=== PATIENT | male | born 1935 | race Caucasian/White ===

== ENCOUNTER 2017-06-27 22:15 | Observation (INO) ==
--- NOTE | 2017-06-27 22:35 | Emergency Department Note ---
Disposition Clinical Impression: Episode of unresponsiveness Disposition: Admitted As Inpatient Condition: Fair Referrals: NONE,PCP [Non-Partnered Physician] - Forms: ED Satisfaction Letter Time of Disposition: 00:27 Altered Mental Status HPI - General Chief Complaint: ED Neuro Symptoms/Deficit Stated Complaint: neuro symptoms Time Seen by Provider: 06/27/17 22:23 Source: patient, EMS Limitations: no limitations Nursing Notes Reviewed: Yes Vital Signs Reviewed: Yes - History of Present Illness HPI Narrative: 81-year-old male presents to the emergency department by ambulance after he had a witnessed episode of unresponsiveness at home which lasted about 2 minutes and then resolved. Patient's son reports that the patient was sitting in a chair talking to him when he suddenly just stopped talking and became unresponsive. Patient was sitting upright in the chair with his arms on the armrest. He was holding his head up and his eyes were open and his mouth was open. Son states that he could not tell if he was breathing or not that he would not to him or respond to shaking him. He did not become very pale or diaphoretic or cyanotic during the episode. He had no complaints prior to the episode. The episode lasted about 2 minutes and then he woke up and was back to his baseline state. No prior history of similar episodes. Patient has a history of dementia. He has caretakers and is unable to ambulate other than with a walker and assistance. On arrival here the patient is alert and oriented to person and place but not time which is baseline for him. Family states that the wafer slicer reported that today he did seem a little more confused than usual. He did eat some but would not drink much water and has not urinated much today. Family reports he does have a history of getting dehydrated easily. The patient denies any headache. He denies any chest pain or shortness of breath. No abdominal pain. MD complaint: altered mental status, decreased responsiveness Onset (ago): Just [employer]ACQU[employer]KER Time: 20:40 Timing confirmed by: family member Associated symptoms: Reports: chills, loss of appetite. Denies: chest pain, cough, diaphoresis, fever, nausea/vomiting, shortness of breath - Related Data Previous Rx's Medication Instructions Recorded Docusate [Colace] 100 mg PO BID PRN #28 capsule 11/18/15 Hyoscyamine SL [Levsin SL] 0.125 mg SL Q4HR #15 tab.subl 11/19/15 Allergies Allergy/AdvReac Type Severity Reaction Status Date / Time No Known Allergies Allergy Verified 08/08/15 01:09 All systems ED: reviewed and negative except as stated. Constitutional: Reports: chills. Denies: fever Eyes: Denies: vision change ENT ED: Denies: throat pain, congestion Cardiovascular: Denies: chest pain Respiratory: Denies: cough, dyspnea Gastrointestinal: Denies: abdominal pain, nausea, vomiting, diarrhea, constipation Genitourinary: Denies: dysuria Musculoskeletal: Denies: back pain, neck pain Neurological: Denies: headache, weakness, numbness Past Medical History - Past Medical History Medical history: Reports: COPD, hypertension Psychiatric history: Reports: no psych history - Social History Smoking Status: Current every day smoker Alcohol use: Reports: none Drug use: Reports: none Physical Exam - General Limitations: no limitations General appearance: alert, in no apparent distress - Head Head exam: atraumatic, normocephalic - Eye Eye exam: Present: EOMI - ENT ENT exam: mucous membranes dry - Neck Neck exam: Present: normal inspection, full ROM, trachea midline. Absent: tenderness, meningismus - Chest Chest inspection: Present: normal inspection, symmetric chest wall rise. Absent : tenderness - Respiratory Respiratory exam: Present: normal lung sounds bilaterally. Absent: respiratory distress, wheezes, accessory muscle use - Cardiovascular Cardiovascular exam: Present: regular rate, normal rhythm, normal heart sounds - Abdominal Exam Abdominal exam: Present: soft, Non-Tender, normal bowel sounds. Absent: distention, guarding, rebound, rigidity - Extremities Exam Extremities exam: Present: normal inspection, full ROM. Absent: tenderness, pedal edema - Back Exam Back exam: Present: normal inspection. Absent: CVA tenderness (R), CVA tenderness (L) - Neurological Exam Neurological exam: Present: alert, other (No facial droop. 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 No gross focal motor or sensory deficits.). Absent: motor sensory deficit - Psychiatric Psychiatric exam: Present: normal affect, normal mood - Skin Skin exam: Present: warm, dry, intact. Absent: cyanosis, diaphoresis Course Course Narrative: 81-year-old male with history of dementia presents to the emergency department with a brief episode of unresponsiveness which lasted about 2 minutes and then totally resolved and patient has been back to his baseline since then. He has been a little more confused than usual today with some decreased fluid intake and decreased urine output. No other symptoms or complaints. Basic lab evaluation with chest x-ray and EKG and head CT. Likely admission for altered mental status. - Reevaluation(s) Reevaluation #1: Test results discussed with patient and family. Consult the hospitalist. Time: 00:22 - Consultations Consultation #1: The hospitalist, Dr. Betancourt, was consulted and accepted admission of the patient. Time: 00:25 Vital Signs Temperature 97.6 F 06/27/17 22:18 Pulse Rate 61 06/27/17 22:18 Respiratory Rate 18 06/27/17 22:18 Blood Pressure 163/76 06/27/17 22:18 O2 Sat by Pulse Oximetry 97 06/27/17 22:18 Temperature 97.6 F 06/27/17 22:18 Pulse Rate 53 06/27/17 23:46 Respiratory Rate 18 06/27/17 23:46 Blood Pressure 153/78 06/27/17 23:46 O2 Sat by Pulse Oximetry 95 06/27/17 23:46 Oxygen Delivery Oxygen Delivery Room Air Altered Mental Status - Medical Records Medical records reviewed: Yes I reviewed the patient's medical records. - Lab Data Lab results reviewed: Yes I reviewed the patient's lab results. Result diagrams: 06/27/17 23:05 06/27/17 23:05 Lab Results 06/27/17 06/27/17 06/27/17 Range/Units 23:05 23:05 23:05 WBC 6.7 (4.3-11.1) K/mcL RBC 4.43 (4.19-5.50) M/mcL Hgb 13.3 (12.9-16.9) g/dL Hct 40.1 (37.5-50.1) % MCV 90.5 (83.0-100.0) fL MCH 30.0 (28.0-33.3) pg MCHC 33.2 (31.6-35.5) g/dL RDW 13.5 (11.5-14.5) % Plt Count 221 (140-400) K/mcL MPV 8.8 L (9.4-12.4) fL Immature Gran % 0.1 (0-4) % Seg Neutrophils % 74.2 % Lymphocytes % 15.0 % Monocytes % 7.3 % Eosinophils % 2.5 % Basophils % 0.9 % Neutrophils # 5.0 (1.6-8.9) K/mcL Lymphocytes # 1.0 (0.6-4.6) K/mcL Monocytes # 0.5 (0.0-1.3) K/mcL Eosinophils # 0.2 (0.0-0.6) K/mcL Basophils # 0.1 (0.0-0.2) K/mcL PT 13.3 H (9.4-12.1) Seconds INR 1.2 APTT 28.3 (26.0-36.0) Seconds Sodium 135 L (136-145) mEq/L Potassium 3.9 (3.5-5.1) mEq/L Chloride 105 (98-107) mEq/L Carbon Dioxide 27 (23-29) mEq/L BUN 21 (8-23) mg/dL Creatinine 1.42 H (0.70-1.30) mg/dL Est GFR ( Amer) 58 L (> 60) Est GFR (Non-Af Amer) 48 L (> 60) BUN/Creatinine Ratio 15 (6-26) Glucose 118 H (70-105) mg/dL Calculated Osmolality 284 (280-300) Calcium 8.4 L (8.6-10.3) mg/dL Total Bilirubin 0.3 (0.3-1.0) mg/dL Direct Bilirubin 0.1 (0.0-0.2) mg/dL Indirect Bilirubin 0.2 (0.0-1.2) mg/dL AST 16 (13-39) Units/L ALT 10 (7-52) Units/L Alkaline Phosphatase 66 (34-104) Units/L Troponin I (< 0.04) ng/mL Serum Total Protein 6.0 L (6.4-8.9) g/dL Albumin 3.3 L (3.5-5.7) g/dL Globulin 2.7 (2.4-3.5) g/dL Albumin/Globulin Ratio 1.2 (1.1-2.2) Urine Color (Yellow) Urine Clarity (Clear) Urine pH (5.0-8.0) pH Units Ur Specific [place] (1.010-1.025) Urine Protein (Neg-Trace) mg/dL Urine Glucose (UA) (Normal) mg/dL Urine Ketones (Negative) mg/dL Urine Blood (Negative) Urine Nitrite (Negative) Urine Bilirubin (Negative) Urine Urobilinogen (Normal) mg/dL Ur Leukocyte Esterase (Negative) Urine Microscopic RBC (0-3) per hpf Urine Microscopic WBC (0-3) per hpf Ur Squamous Epith Cells (None-Few) per lpf Urine Bacteria (None-Few) per hpf Hyaline Casts (None-Few) per lpf Ur Culture Indicated? (NO) 06/27/17 06/27/17 Range/Units 23:05 23:20 WBC (4.3-11.1) K/mcL RBC (4.19-5.50) M/mcL Hgb (12.9-16.9) g/dL Hct (37.5-50.1) % MCV (83.0-100.0) fL MCH (28.0-33.3) pg MCHC (31.6-35.5) g/dL RDW (11.5-14.5) % Plt Count (140-400) K/mcL MPV (9.4-12.4) fL Immature Gran % (0-4) % Seg Neutrophils % % Lymphocytes % % Monocytes % % Eosinophils % % Basophils % % Neutrophils # (1.6-8.9) K/mcL Lymphocytes # (0.6-4.6) K/mcL Monocytes # (0.0-1.3) K/mcL Eosinophils # (0.0-0.6) K/mcL Basophils # (0.0-0.2) K/mcL PT (9.4-12.1) Seconds INR APTT (26.0-36.0) Seconds Sodium (136-145) mEq/L Potassium (3.5-5.1) mEq/L Chloride (98-107) mEq/L Carbon Dioxide (23-29) mEq/L BUN (8-23) mg/dL Creatinine (0.70-1.30) mg/dL Est GFR ( Amer) (> 60) Est GFR (Non-Af Amer) (> 60) BUN/Creatinine Ratio (6-26) Glucose (70-105) mg/dL Calculated Osmolality (280-300) Calcium (8.6-10.3) mg/dL Total Bilirubin (0.3-1.0) mg/dL Direct Bilirubin (0.0-0.2) mg/dL Indirect Bilirubin (0.0-1.2) mg/dL AST (13-39) Units/L ALT (7-52) Units/L Alkaline Phosphatase (34-104) Units/L Troponin I < 0.03 (< 0.04) ng/mL Serum Total Protein (6.4-8.9) g/dL Albumin (3.5-5.7) g/dL Globulin (2.4-3.5) g/dL Albumin/Globulin Ratio (1.1-2.2) Urine Color Yellow (Yellow) Urine Clarity Clear (Clear) Urine pH 5.5 (5.0-8.0) pH Units Ur Specific [place] 1.028 H (1.010-1.025) Urine Protein Trace (Neg-Trace) mg/dL Urine Glucose (UA) Normal (Normal) mg/dL Urine Ketones Negative (Negative) mg/dL Urine Blood Negative (Negative) Urine Nitrite Negative (Negative) Urine Bilirubin Negative (Negative) Urine Urobilinogen Normal (Normal) mg/dL Ur Leukocyte Esterase Negative (Negative) Urine Microscopic RBC 5-15 H (0-3) per hpf Urine Microscopic WBC 3-5 H (0-3) per hpf Ur Squamous Epith Cells Moderate H (None-Few) per lpf Urine Bacteria None Seen (None-Few) per hpf Hyaline Casts None Seen (None-Few) per lpf Ur Culture Indicated? NO (NO) - Radiology Data Radiology results reviewed: Yes I reviewed the patient's radiology results. Chest X-Ray 06/27/17 22:35 IMPRESSION: Small opacity in the left lower lobe. This is suggestive of pleural effusion and partial atelectasis. Underlying pneumonia is not excluded. D/ / 06/27/2017 23:04:30 Ahsan Brenner MD / Cinthia Brooks Interpreting Provider: Ahsan Brenner MD Head CT 06/27/17 22:36 IMPRESSION: No evidence of acute intracranial hemorrhage or mass effect. Global atrophy and findings of chronic small vessel ischemia as above. D/ / Aaron Foreman MD / Aaron Foreman MD Interpreting Provider: Aaron Foreman MD - EKG Data EKG attestation: Yes I reviewed and interpreted this EKG. EKG results narrative: Sinus bradycardia with first-degree AV block. Heart rate 57. Right bundle branch block. No significant change from prior EKG dated 11/18/2015. TPA Checklist - LKW: 3-4.5 hrs Add. Warnings/Precautions Patient/family understanding: The patient/family members have been counseled and understood the risk, benefit , and alternatives of treatment.
[2017-06-27] MEDS ORDERED: 0.9 % Sodium Chloride 500 ML IVC ONE (22:41)
[2017-06-27 23:18] LABS: Basophils # 0.1 K/mcL (0.0-0.2); Basophils % 0.9 %; Eosinophils # 0.2 K/mcL (0.0-0.6); Eosinophils % 2.5 %; Hematocrit 40.1 % (37.5-50.1); Hemoglobin 13.3 g/dL (12.9-16.9); Immature Granulocytes % 0.1 % (0-4); Mean Corpuscular HGB Conc 33.2 g/dL (31.6-35.5); Mean Corpuscular Volume 90.5 fL (83.0-100.0); Mean Platelet Volume 8.8 fL (9.4-12.4); Monocytes # 0.5 K/mcL (0.0-1.3); Monocytes % 7.3 %; Platelet Count 221 K/mcL (140-400); Red Blood Count 4.43 M/mcL (4.19-5.50); Red Cell Distribution Width 13.5 % (11.5-14.5); Segmented Neutrophils % 74.2 %
[2017-06-27 23:32] LABS: INR 1.2; Prothrombin Time 13.3 Seconds (9.4-12.1)
[2017-06-27 23:35] LABS: Activated Partial Thrombo Time 28.3 Seconds (26.0-36.0)
[2017-06-27 23:38] LABS: Bilirubin,Urine Negative (Negative); Blood,Urine Negative (Negative); Clarity,Urine Clear (Clear); Color,Urine Yellow (Yellow); Glucose,Urine (UA) Normal (Normal); Ketones,Urine Negative (Negative); Leukocyte Esterase,Urine Negative (Negative); Nitrite,Urine Negative (Negative); PH,Urine 5.5 pH Units (5.0-8.0); Protein,Urine Trace mg/dL (Neg-Trace); Specific Gravity,Urine 1.028 (1.010-1.025); Urobilinogen,Urine Normal (Normal)
[2017-06-27 23:39] LABS: Bacteria,Urine None Seen per hpf (None-Few); Hyaline Casts,Urine None Seen per lpf (None-Few); Squamous Epithelial Cell,Urine Moderate per lpf (None-Few)
[2017-06-27] MEDS: 0.9 % Sodium Chloride 1,000 ML IVC SCH (23:40)
[2017-06-27 23:41] LABS: Albumin 3.3 g/dL (3.5-5.7); Albumin/Globulin Ratio 1.2 (1.1-2.2); Bilirubin,Direct 0.1 mg/dL (0.0-0.2); Bilirubin,Indirect 0.2 mg/dL (0.0-1.2); Bilirubin,Total 0.3 mg/dL (0.3-1.0); Calcium 8.4 mg/dL (8.6-10.3); Globulin 2.7 g/dL (2.4-3.5); Potassium 3.9 mEq/L (3.5-5.1)
[2017-06-28] MEDS ORDERED: Naloxone 0.4 MG/ML INJ IVP PRN (01:35)
--- NOTE | 2017-06-28 01:59 | Internal Med History&Physical ---
<Jean ClaudeBrandyBrett - Last Filed: 06/28/17 01:51> Date of Encounter: 06/28/17 Time of Encounter: 00:30 Assessment and Plan (1) Episode of unresponsiveness Current visit: Yes Status: Acute Short episode lasting ~[address] head negative Will work up for syncope and seizure Ordered bilateral carotid dopplers, echocardiogram Ordered EEG Neuro checks q4 (2) Dementia Current visit: Yes Status: Chronic At baseline Qualifiers: Dementia type: unspecified type Dementia behavioral disturbance: without behavioral disturbance Qualified Code(s): F03.90 - Unspecified dementia without behavioral disturbance (3) HTN (hypertension) Current visit: Yes Status: Chronic Controlled Continue home lisinopril Qualifiers: Hypertension type: essential hypertension Qualified Code(s): I10 - Essential (primary) hypertension (4) CKD (chronic kidney disease) Current visit: Yes Status: Chronic Cr 1.42 Around baseline Will monitor Qualifiers: Chronic kidney disease stage: unspecified stage Qualified Code(s): N18.9 - Chronic kidney disease, unspecified (5) Hx of basal cell carcinoma excision Current visit: Yes Status: Chronic (6) COPD (chronic obstructive pulmonary disease) Current visit: Yes Status: Chronic No acute exacerbation Will monitor Qualifiers: COPD type: unspecified COPD Qualified Code(s): J44.9 - Chronic obstructive pulmonary disease, unspecified (7) Tobacco abuse, in remission Current visit: Yes Status: Chronic Quit chewing tobacco in recent months Quit smoking in 2014 (8) DVT prophylaxis Current visit: Yes Status: Acute Heparin subq q12h Internal Medicine - H&P: HPI Chief complaint: Nonresponsive x2 minutes Admitted From: Home Plans for Post Hospital Care: Home History of present illness: Mr. Flores is a 81 year old male with baseline dementia who presents with 2 minutes of being nonresponsive. Due to the patient's baseline mental status, most of the history is gathered from his son, who he lives with. The patient was in the middle of a conversation with his son when he suddenly became nonresponsive in his armchair, "staring straight forward with wide eyes and an open mouth." The son relays that there have been no past episodes. The patient did not complain of headache, chest pain, SOB, palpitations, fever, or chills at that time, and continues to deny them when seen in the ED. The patient ambulates only with a walker or with assistance at home and did have a fall about one month ago. Past medical history is significant for HTN, esophageal stenosis, TIAs, CKD, excised basal cell carcinoma, and COPD. Patient has a long history of both smoking and chewing tobacco, up to 70 years of each. Past Med Surg Social Fam HX - Past Medical History Medical history: COPD, hypertension Psychiatric history: no psych history - Social History Smoking Status: Former smoker Smokeless Tobacco Status: No Alcohol use: none Drug use: none Internal Medicine - H&P: Meds Aspirin [Lo-Dose Aspirin EC] 81 mg PO DAILY 06/28/17 [History] Cetirizine HCl [All Day Allergy] 10 mg PO DAILY 06/28/17 [History] Lisinopril [Zestril] 20 mg PO DAILY 06/28/17 [History] Memantine [Namenda] 5 mg PO BID 06/28/17 [History] Mirtazapine [Remeron] 15 mg PO HS 06/28/17 [History] Trazodone HCl 100 mg PO HS 06/28/17 [History] 3 Allergy/AdvReac Type Severity Reaction Status Date / Time No Known Allergies Allergy Verified 08/08/15 01:09 All Systems PM: A 10-system review of systems was performed and is negative for pertinent findings except as documented above in the HPI. Review of systems: As per HPI - Constitutional Vitals: Temp Pulse Resp BP Pulse Ox 97.3 F L 51 16 162/80 56 06/28/17 01:29 06/28/17 00:37 06/28/17 01:29 06/28/17 01:29 06/28/17 01:29 General appearance: Present: cooperative, A&O X 2 (person and place), pleasant, no acute distress, answers questions appropriately - Head Head exam: Present: atraumatic, normal inspection, normocephalic - ENT ENT exam: Present: mucous membranes moist - Neck Neck exam general surgery: Present: trachea midline - Respiratory Respiratory exam: Present: decreased breath sounds, CTAB. Absent: accessory muscle use, respiratory distress - Cardiovascular Cardiovascular exam: Present: bradycardia (50s), +S1, +S2 - GI/Abdominal GI/Abdominal exam: Present: soft, no peritoneal signs Additional comments: no carotid bruits appreciated - Extremities Exam Extremities exam: Present: radial pulses palpable and symmetrical - Neurological Exam Neurological exam: Present: no focal deficits - Psychiatric Psychiatric exam: Present: normal affect, normal mood. Absent: agitated, anxious Additional comments: confusion at baseline per family - Skin Skin exam: Present: dry, warm Internal Med - H&P Results - Labs CBC & Chem 7: 06/27/17 23:05 06/27/17 23:05 <Bradley Laguerre - Last Filed: 06/28/17 02:45> Date of Encounter: 06/28/17 Time of Encounter: : Internal Medicine - H&P: HPI History of present illness: Mr. Flores is a 81 year old male All Systems PM: A 10-system review of systems was performed and is negative for pertinent findings except as documented above in the HPI. - Constitutional Vitals: Temp Pulse Resp BP Pulse Ox 97.3 F L 56 16 162/80 96 06/28/17 01:29 06/28/17 01:29 06/28/17 01:29 06/28/17 01:29 06/28/17 01:29 Internal Med - H&P Results - Labs CBC & Chem 7: 06/27/17 23:05 06/27/17 23:05 - Attending Attestation I examined this patient and my medical decision-making was reviewed with the Resident Physician, Dr. Brett Silverio. I agree with the documented findings, disposition and treatment plan as described with any changes set forth below. 81-year-old male patient with history of dementia, hypertension, chronic kidney disease stage III, COPD presented to the ER with EMS after he had an episode of nonresponsiveness while his son was speaking with him. The episode apparently lasted for about 2 minutes. Patient was apparently staring straightforward with wide-open eyes and open mouth. The patient himself has dementia and does not recollect any of this but this information was obtained through review of ED records and from family. Currently he denies any chest pain shortness of breath. Noticed lightheadedness. On examination, patient is awake and alert. Does have erythema in his right conjunctiva. Heart sounds are normal. Breath sounds were also normal. No pedal edema. Labs show sodium of 135, creatinine of 1.42. Head CT was negative for any acute bleed. Patient does have global atrophy. Chest x-ray shows small obesity in left lower lobe concerning for pleural effusion and partial atelectasis. Possible syncope/ episode of unconsciousness: Uncertain etiology. Will evaluate for possible syncope and seizures. Get 2-D echocardiogram, carotid Dopplers and EEG. Monitor neuro status. Dementia: Chronic condition. At risk for delirium. Will monitor. Chronic kidney disease stage III: Appears to be at patient's baseline. We will follow renal function closely. Left-sided pleural effusion: Uncertain etiology. 2-D echo. Will get CT chest to better evaluate this and look for any underlying infiltrate. DVT prophylaxis: With subcutaneous heparin
[2017-06-28 04:58] LABS: BUN/Creatinine Ratio 15 (6-26); Blood Urea Nitrogen 20 mg/dL (8-23); Calcium 8.3 mg/dL (8.6-10.3); Carbon Dioxide 26 mEq/L (23-29); Chloride 107 mEq/L (98-107); Glucose 109 mg/dL (70-105); Osmolality,Calculated 287 (280-300); Sodium 137 mEq/L (136-145); eGFR For African Americans > 60 (> 60); eGFR For Non-African Americans 53 (> 60)
[2017-06-28] MEDS: *HR* Heparin 5,000 UNIT/ML VIAL SQ SCH ×2 (06:05→17:44)
[2017-06-28] MEDS: Aspirin Enteric Coated 81 MG Tablet PO SCH (09:38)
[2017-06-28] MEDS: Lisinopril 20 MG TABLET PO SCH (09:38)
--- NOTE | 2017-06-28 15:08 | EEG/EMG/Oth Biometrics Report ---
EEG Procedure Report Date of procedure: 06/28/17 EEG Procedure: Routine EEG Procedure Note: This is a report of a 21 channel bipolar and referential montage EEG recorded on an individual who experienced what sounds like a syncopal episode. It on a rhythm consists of low-voltage mixed theta and delta frequencies. This rhythm reveals in all leads bilaterally. However vertex sharp waves are identified need any recording. Hyperventilation is not performed in the recording. The individual remains and appears to be stage III sleep throughout much of the recording. There is no wakefulness identified during the study. Photic stimulation does not produce a driving response. The EKG rhythm strip reveals sinus bradycardia at 48 bpm. Impressions: This study is normal consistent with stage III sleep. There is no evidence of epileptiform activity identified during the study. Sinus bradycardia at 48 beats per minutes is also identified. Comment: A normal EEG does not preclude a diagnosis of seizure or epilepsy. If the clinical suspicion for seizure activity is high, serial EEGs or perhaps a prolonged recording may increase the yield. Please correlate clinically.
--- NOTE | 2017-06-28 17:07 | Internal Med Progress Note ---
Date of Encounter: 06/28/17 Time of Encounter: 11:00 - Assessment and plan (1) Episode of unresponsiveness Current Visit: Yes Status: Acute Assessment and plan: Patient was brought to the emergency department by son after 2 minute episode of unresponsiveness. Pt with baseline dementia and while talking with son was staring straight ahead with his mouth open. CT head is negative. There is global atrophy and chronic small vessel ischemia. EEG was negative. Carotid Dopplers were found to have nonstenotic plaque, and echocardiogram has preserved function with mild LVEDD and no significant valvular dysfunction. There is plaque noted in the ascending aorta. Patient has had no episodes since arrival. Family reports that they would like for him to be placed in the ECF due to continued need for care. (2) CKD (chronic kidney disease) Current Visit: Yes Status: Chronic Assessment and plan: GFR is 53, serum creatinine 1.3. His peers to be patient's baseline. Continue to avoid nephrotoxins Monitor labs. Qualifiers: Chronic kidney disease stage: unspecified stage Qualified Code(s): N18.9 - Chronic kidney disease, unspecified (3) COPD (chronic obstructive pulmonary disease) Current Visit: Yes Status: Chronic Assessment and plan: Patient in no acute exacerbation. Lungs are clear and diminished throughout. Patient is on room air. Oxygen as needed to maintain sats greater than 92%. Patient does not appear to take any medications at home for COPD. Qualifiers: COPD type: unspecified COPD Qualified Code(s): J44.9 - Chronic obstructive pulmonary disease, unspecified (4) Dementia Current Visit: Yes Status: Chronic Assessment and plan: Patient appears to be at baseline. Patient is close to the nurses station. Continue fall precautions and bed alarm. Qualifiers: Dementia type: unspecified type Dementia behavioral disturbance: without behavioral disturbance Qualified Code(s): F03.90 - Unspecified dementia without behavioral disturbance (5) HTN (hypertension) Current Visit: Yes Status: Chronic Assessment and plan: Chronic. Continue home medications. Qualifiers: Hypertension type: essential hypertension Qualified Code(s): I10 - Essential (primary) hypertension (6) Hx of basal cell carcinoma excision Current Visit: Yes Status: Chronic (7) Tobacco abuse, in remission Current Visit: Yes Status: Chronic Assessment and plan: Smoking cessation in 2014. Patient recently stop smokeless tobacco in the last 3-6 months. (8) DVT prophylaxis Current Visit: Yes Status: Acute Assessment and plan: Heparin subcutaneous twice daily. - Time Spent With Patient less than 15 minutes - Subjective Interval history: Patient was patient was seen and assessed at bedside at 11 AM. He is alert, awake. He is oriented to name only. Despite redirection, patient is unable to recall information. He denies any headache or blurred vision. He denies any abdominal pain, nausea or vomiting. He denies chest pain or shortness of breath. I spoke with family later this afternoon, the requesting he is admitted to a [place] [facility] since she requires so much care. They are aware that we are waiting on physical therapy, occupational therapy, and social work to start the process. I spoke with the about everything except for the echocardiogram results, which were not available at that time. - Constitutional Vitals: Temp Pulse Resp BP Pulse Ox 97.3 F L 56 16 185/85 95 06/28/17 16:14 06/28/17 16:14 06/28/17 16:14 06/28/17 16:14 06/28/17 16:14 General appearance: Present: cooperative, A&O X 2 (person and place), pleasant, no acute distress, answers questions appropriately - Head Head exam: Present: atraumatic, normal inspection, normocephalic - Eye Eye exam: Present: normal appearance, conjuntiva pink, sclera anicteric - Neck Neck exam general surgery: Present: supple, trachea midline. Absent: lymphadenopathy, tenderness - Respiratory Respiratory exam: Present: CTAB. Absent: accessory muscle use, chest wall tenderness, rales, respiratory distress, rhonchi, wheezes - Cardiovascular Cardiovascular exam: Present: RRR, +S1, +S2. Absent: diastolic murmur, gallop, rubs, systolic murmur - GI/Abdominal GI/Abdominal exam: Present: normal bowel sounds, soft. Absent: distended, hepatomegaly, tenderness - Extremities Exam Extremities exam: Present: normal capillary refill, warm, radial pulses palpable and symmetrical. Absent: calf tenderness, cyanotic, pedal edema, tenderness - Neurological Exam Neurological exam: Present: alert, altered, no focal deficits. Absent: oriented X3, facial droop, speech deficit - Skin Skin exam: Present: dry, intact, normal color, warm. Absent: rash Internal Medicine: Result - Labs CBC & Chem 7: 06/27/17 23:05 06/28/17 04:25 Labs: BMP 06/28/17 04:25 Sodium 137 Potassium 4.0 Chloride 107 Carbon Dioxide 26 BUN 20 Creatinine 1.30 Glucose 109 H Calcium 8.3 L - ABG Interpretation ABG results: PT/INR, D-dimer PT 13.3 Seconds (9.4-12.1) H 06/27/17 23:05 - Impressions Impressions Echocardiogram 06/28/17 01:23 Impressions: Sinus bradycardia, HR 40-50's. LVEF 60%. Mild left ventricular diastolic dysfunction. Normal right ventricular structure with normal function. No significant valvular dysfunction. No pulmonary hypertension. Plaque noted in the ascending aorta. Left Ventricular Wall Motion: Rest Echo Findings All wall segments showed normal motion. Findings: Study Quality * Technically adequate exam. ECG Findings * Sinus bradycardia, HR 40-50's. Left Ventricle * LVEF 60%. * Normal LV chamber size, wall thickness and function. * Mild left ventricular diastolic dysfunction. Right Ventricle * Normal right ventricular structure with normal function. Left Atrium * Moderately dilated left atrium. Right Atrium * Normal right atrial size. Aortic Valve * No aortic regurgitation. * Trileaflet aortic valve. * No aortic stenosis. Mitral Valve * No mitral regurgitation. * Normal mitral valve structure. * No mitral stenosis. Tricuspid Valve * Tricuspid valve not well visualized. * No tricuspid regurgitation. * Estimated RA pressure is 3 mmHg. Pulmonic Valve * Pulmonic valve is not well visualized. * No pulmonic stenosis. * Trace pulmonic regurgitation. Pulmonary Artery * Pulmonary artery not well visualized. Aorta * Normally sized aortic root. * Plaque noted in the ascending aorta. Pericardium * There is no pericardial effusion present. Interatrial Septum * No evidence of PFO by color Doppler. IVC * Normal IVC dimensions and inspiratory collapse. Chest CT 06/28/17 08:00 IMPRESSION: 1. Mild bronchial wall thickening in the left lower lobe. Please correlate with clinical symptoms of bronchitis. There is no associated pleural effusion. 2. Coronary artery disease. 3. Emphysema. 4. Multiple nodules in the lung apices bilaterally, measuring up to 5 mm in size. Please see below for follow-up recommendations. 5. Severe right glenohumeral degenerative changes. RECOMMENDATIONS: Fleischner Society guidelines for follow-up and management of incidentally detected pulmonary nodules: Multiple Solid Nodules: Nodule size less than 6 mm In a low-risk patient, no routine follow-up. In a high-risk patient, optional CT at 12 months. - Low risk patients include individuals with minimal or absent history of smoking and other known risk factors. - High risk patients include individuals with a history or smoking or known risk factors. Radiology 2017 http://pubs.rsna.org/doi/full/10.1148/[email or web address] D/ / 06/28/2017 08:44:55 Ector Mccall MD / bruce Interpreting Provider: Ector Mccall MD Consult Discharge Plan - Plan [facility]errals: [facility] [Primary Care Provider] -
--- NOTE | 2017-06-28 19:47 | Electrocardiograph Report ---
[address] [address] Test Date: 2017-06-27 Pat Name: Cain Flores Department: 104 Room: 3B Gender: M School Occupational Therapist: IAN : 1935 Requested By: Aston Delgado Order Number: [id number] Reading MD: Lashell Whitlock Measurements Intervals [place] Rate: 57 P: 59 CO: 228 QRS: 254 QRSD: 157 T: 25 QT: 450 QTc: 444 Interpretive Statements SINUS BRADYCARDIA WITH FIRST DEGREE AV BLOCK MARKED RIGHT AXIS DEVIATION RIGHT BUNDLE BRANCH BLOCK Electronically Signed On 06-28-2017 19:45:48 EST by Lashell Whitlock
[2017-06-28] MEDS: 0.9 % Sodium Chloride 1,000 ML IVC SCH (20:28)
[2017-06-28] MEDS ORDERED: Mirtazapine 15 MG TABLET PO SCH (21:00)
[2017-06-28] MEDS ORDERED: traZODone 50 MG TABLET PO SCH (21:00)
[2017-06-29] MEDS: *HR* Heparin 5,000 UNIT/ML VIAL SQ SCH (04:22)
[2017-06-29 06:18] LABS: Basophils # 0.1 K/mcL (0.0-0.2); Basophils % 1.1 %; Eosinophils # 0.4 K/mcL (0.0-0.6); Eosinophils % 5.6 %; Hematocrit 36.5 % (37.5-50.1); Hemoglobin 12.1 g/dL (12.9-16.9); Immature Granulocytes % 0.3 % (0-4); Lymphocytes % 31.2 %; Mean Corpuscular HGB Conc 33.2 g/dL (31.6-35.5); Mean Corpuscular Hemoglobin 29.7 pg (28.0-33.3); Mean Corpuscular Volume 89.7 fL (83.0-100.0); Mean Platelet Volume 9.4 fL (9.4-12.4); Monocytes # 0.5 K/mcL (0.0-1.3); Monocytes % 7.5 %; Neutrophils # 3.4 K/mcL (1.6-8.9); Platelet Count 226 K/mcL (140-400); Red Blood Count 4.07 M/mcL (4.19-5.50); Red Cell Distribution Width 13.3 % (11.5-14.5); Segmented Neutrophils % 54.3 %
[2017-06-29 06:38] LABS: BUN/Creatinine Ratio 13 (6-26); Blood Urea Nitrogen 16 mg/dL (8-23); Calcium 8.5 mg/dL (8.6-10.3); Carbon Dioxide 27 mEq/L (23-29); Chloride 108 mEq/L (98-107); Glucose 88 mg/dL (70-105); Osmolality,Calculated 287 (280-300); Potassium 3.7 mEq/L (3.5-5.1); Sodium 138 mEq/L (136-145); eGFR For African Americans > 60 (> 60); eGFR For Non-African Americans 56 (> 60)
[2017-06-29 06:51] VITALS: BP 172/89
[2017-06-29] MEDS: Aspirin Enteric Coated 81 MG Tablet PO SCH (08:41)
[2017-06-29] MEDS: Lisinopril 20 MG TABLET PO SCH (08:41)
[2017-06-29] MEDS ORDERED: hydroCHLOROthiazide 25 MG TABLET PO SCH (09:00)
--- NOTE | 2017-06-29 10:03 | Discharge Summary ---
Date of Encounter: 06/29/17 Time of Encounter: 09:50 - Discharge Diagnosis (1) Episode of unresponsiveness Priority: Primary Status: Resolved Comments: Patient was brought to the emergency department by son after 2 minute episode of unresponsiveness. Pt with baseline dementia and while talking with son was staring straight ahead with his mouth open. CT head is negative. There is global atrophy and chronic small vessel ischemia. EEG was negative. Carotid Dopplers were found to have nonstenotic plaque, and echocardiogram has preserved function with mild LVEDD and no significant valvular dysfunction. There is plaque noted in the ascending aorta. Patient has had no episodes since arrival. (2) CKD (chronic kidney disease) Priority: Secondary Status: Chronic Comments: GFR is 56, serum creatinine 1.24. Appears to be patient's baseline. Continue to avoid nephrotoxins. Qualifiers: Chronic kidney disease stage: unspecified stage Qualified Code(s): N18.9 - Chronic kidney disease, unspecified (3) COPD (chronic obstructive pulmonary disease) Priority: Secondary Status: Chronic Comments: No acute exacerbation. Lungs are clear and diminished throughout. Patient is on room air. Oxygen as needed to maintain sats greater than 92%. Patient does not appear to take any medications at home for COPD. May use prn Duonebs at [facility] for wheezing or cough. Qualifiers: COPD type: unspecified COPD Qualified Code(s): J44.9 - Chronic obstructive pulmonary disease, unspecified (4) Dementia Priority: Secondary Status: Chronic Comments: Patient appears to be at baseline. Patient is close to the nurses station. Continue fall precautions and bed alarm. Qualifiers: Dementia type: unspecified type Dementia behavioral disturbance: without behavioral disturbance Qualified Code(s): F03.90 - Unspecified dementia without behavioral disturbance (5) HTN (hypertension) Priority: Secondary Status: Chronic Comments: Chronic. Continue home medications. Well controlled. Qualifiers: Hypertension type: essential hypertension Qualified Code(s): I10 - Essential (primary) hypertension (6) Hx of basal cell carcinoma excision Priority: Secondary Status: Chronic Comments: Per history. (7) Tobacco abuse, in remission Priority: Secondary Status: Chronic Comments: Smoking cessation in 2014. Patient recently stopped using smokeless tobacco in the last 3-6 months. (8) DVT prophylaxis Priority: Secondary Status: Acute Comments: Heparin subcutaneous BID. - Discharge Medications Home Medications: Aspirin [Lo-Dose Aspirin EC] 81 mg PO DAILY 06/28/17 [History] Cetirizine HCl [All Day Allergy] 10 mg PO DAILY 06/28/17 [History] Lisinopril [Zestril] 20 mg PO DAILY 06/28/17 [History] Memantine [Namenda] 5 mg PO BID 06/28/17 [History] Mirtazapine [Remeron] 15 mg PO HS 06/28/17 [History] Omeprazole [PriLOSEC] 20 mg PO DAILY 06/28/17 [History] Trazodone HCl 100 mg PO HS 06/28/17 [History] Allergies/Adverse Reactions: 3 Allergy/AdvReac Type Severity Reaction Status Date / Time No Known Allergies Allergy Verified 08/08/15 01:09 Date of admission: 06/29/17 08:54 [facility] Discharging clinician: Brenna Parekh Anticipated date of discharge: 06/29/17 - Patient Status Disposition: Transfer SNF Condition: Good Functional capacity at discharge: uses cane/walker Overall status at discharge: patient is progressing back to baseline - Discharge Instructions Follow Up With: [facility] [Primary Care Provider] - - Diet and Activity Activity: as per physical therapy Diet: advance to your usual diet Hospital course: Mr. Flores is a 81 year old male with PMH or dementia, HTN, basal cell carcinoma, tobacco use, COPD, CKD stage III who presented to the ED with approximately 2 min episode of staring off with mouth open and did not respond to son who was speaking to him. All imaging was negative, EEG was negative. Labs are WNL and renal function is at baseline. Pt has history of dementia and has not had behavioral disturbances. He is at his baseline per son. The family has requested that he is placed in an ECF, he is becoming increasingly difficult to care for at home. He has been accepted to [facility] and will be transferred there today. Pt was intermittently hypertensive and has been started on HCTZ 12.5mg po daily , will continue at ECF and will require further monitoring and medication adjustments prn. Pt is stable and appropriate for discharge to ECF - Time Spent with Patient Total time spent providing and/or coordinating discharge services: Less than 30 minutes - Constitutional Vitals: Temp Pulse Resp BP Pulse Ox 98.1 F 53 16 172/89 96 06/29/17 06:49 06/29/17 06:49 06/29/17 06:49 06/29/17 06:49 06/29/17 06:49 General appearance: Present: cooperative, A&O X 2 (person and place), pleasant, no acute distress. Absent: answers questions appropriately - Head Head exam: Present: atraumatic, normal inspection, normocephalic - Eye Eye exam: Present: conjuntiva pink. Absent: normal appearance, sclera anicteric - Neck Neck exam general surgery: Present: supple, trachea midline. Absent: lymphadenopathy - Respiratory Respiratory exam: Present: CTAB. Absent: accessory muscle use, rales, respiratory distress, rhonchi, wheezes - Cardiovascular Cardiovascular exam: Present: RRR, +S1, +S2. Absent: diastolic murmur, gallop, rubs, systolic murmur - GI/Abdominal GI/Abdominal exam: Present: normal bowel sounds, soft, no peritoneal signs. Absent: distended, hepatomegaly, tenderness - Extremities Exam Extremities exam: Present: normal capillary refill, normal inspection, warm, radial pulses palpable and symmetrical. Absent: calf tenderness, cyanotic, pedal edema - Neurological Exam Neurological exam: Present: alert, oriented X3, no focal deficits. Absent: altered, facial droop, speech deficit - Skin Skin exam: Present: dry, intact, normal color, warm. Absent: rash
--- NOTE | 2017-06-29 10:16 | Physician Discharge Referral ---
ExtendedCare Referral Info Transfer To: [facility] Provider in Charge after Transfer: PCP Institutional Level of Care: Intermediate - Diagnosis (1) Episode of unresponsiveness Priority: Primary Status: Resolved (2) CKD (chronic kidney disease) Priority: Secondary Status: Chronic (3) COPD (chronic obstructive pulmonary disease) Priority: Secondary Status: Chronic (4) Dementia Priority: Secondary Status: Chronic (5) HTN (hypertension) Priority: Secondary Status: Chronic (6) Hx of basal cell carcinoma excision Priority: Secondary Status: Chronic (7) Tobacco abuse, in remission Priority: Secondary Status: Chronic (8) DVT prophylaxis Priority: Secondary Status: Acute Prognosis: Fair Aware of Diagnosis: Family - Transfer Medications Home Medications: Aspirin [Lo-Dose Aspirin EC] 81 mg PO DAILY 06/28/17 [History] Cetirizine HCl [All Day Allergy] 10 mg PO DAILY 06/28/17 [History] Lisinopril [Zestril] 20 mg PO DAILY 06/28/17 [History] Memantine [Namenda] 5 mg PO BID 06/28/17 [History] Mirtazapine [Remeron] 15 mg PO HS 06/28/17 [History] Omeprazole [PriLOSEC] 20 mg PO DAILY 06/28/17 [History] Trazodone HCl 100 mg PO HS 06/28/17 [History] Allergies/Adverse Reactions: 3 Allergy/AdvReac Type Severity Reaction Status Date / Time No Known Allergies Allergy Verified 08/08/15 01:09 - Respiratory Orders Oxygen / L per min (2L prn, titrate to maintain sats > 92%) Smoking Cessation: Smoking cessation has been advised. For more information, call the [place] Tobacco Quit Line at 2-408-LGDD-NOW. - Lab Orders Lab Orders: CBC, U/A, CXR yearly - Ancillary Orders May consult with Dentist, Artificial Inseminator, Glass Sagger PRN - Advance Directives Code Status: Full Code - Mobility Orders Chair, Bedrest - Rehabiliation Orders Rehab Potential: Fair Rehab Orders: ROM Exercises, Evaluation for Physical Therapy, Evaluation for Occupational Therapy - Treatments Skin tear care topically daily PRN per policy, May check for fecal impaction rectally daily PRN, Fleet enema rectally every other day PRN cleansing purposes - Diet Orders Regular CERTIFICATION: I certify that the transfer of the above named patient to an Extended Care Facility is necessary for the continuing treatment of the diagnosis listed. The above information is true and accurate reflection of patient's current condition. Confidential - Redisclosure prohibited without a patient's written consent.
== END 2017-06-29 13:30 ==
LOC: 3BNU 22:15 → EMEROO 22:15 → 3BNU 06-28 01:07
PROVIDERS: ADMIT Internal Medicine; ATTEND Registered Nurse

== ENCOUNTER 2019-06-05 07:13 | Inpatient (IN) ==
[2019-06-05] MEDS ORDERED: *HR* Propofol 200 MG/20 ML VIAL IVP ONE (07:29)
[2019-06-05] MEDS ORDERED: *HR* FentaNYL (PF) 100 MCG/2 ML VIAL ONE (07:29)
[2019-06-05] MEDS ORDERED: Lidocaine -MPF 2% 2 ML VIAL ONE (07:30)
[2019-06-05] MEDS ORDERED: Dexamethasone 4 MG/ML VIAL ONE ×2 (07:30→08:36)
[2019-06-05] MEDS ORDERED: Ondansetron 4 MG/2 ML VIAL ONE ×2 (07:30→08:36)
[2019-06-05] MEDS ORDERED: *HR* Succinylcholine 200 MG/10 ML VIAL IVP ONE (07:30)
[2019-06-05] MEDS ORDERED: *HR* Rocuronium Bromide 50 MG/5 ML VIAL ONE (07:32)
[2019-06-05] MEDS ORDERED: cefOXitin 2,000 MG in Water for inj. (sterile) 20 ML IVP ONE (07:59)
[2019-06-05] MEDS ORDERED: Albuterol 2.5 MG/3 ML NEBULIZER IH PRN ×2 (07:59→08:03)
[2019-06-05] MEDS ORDERED: Ringers Solution, Lactated 1,000 ML IVC SCH (08:00)
[2019-06-05] MEDS ORDERED: *HR* Labetalol 20 MG/4 ML SYRINGE IVP PRN (08:03)
[2019-06-05] MEDS ORDERED: Ketorolac 30 MG/ML VIAL IVP ONE (08:03)
[2019-06-05] MEDS ORDERED: *HR* OxyCODONE Immed Rel 5 MG TABLET PO PRN (08:03)
[2019-06-05] MEDS ORDERED: *HR* Promethazine 25 MG/ML VIAL IVP PRN (08:03)
[2019-06-05] MEDS ORDERED: *HR* FentaNYL (PF) 100 MCG/2 ML VIAL IVP PRN (08:03)
[2019-06-05] MEDS ORDERED: Acetaminophen IV 1,000 MG/100 ML INFUS..BTL IVPB ONE (08:03)
[2019-06-05] MEDS ORDERED: Ondansetron 4 MG/2 ML VIAL IVP ONE (08:03)
[2019-06-05] MEDS ORDERED: Famotidine 20 MG/2 ML VIAL IVP ONE (08:03)
[2019-06-05] MEDS ORDERED: Bupivacaine/EPI 1:200k 0.5%PF 30 ML VIAL ONE (08:26)
[2019-06-05] MEDS ORDERED: Isovue-300 50ML VIAL ONE (08:26)
[2019-06-05] MEDS ORDERED: Lidocaine -MPF 4% 5 ML AMPUL ONE (08:38)
[2019-06-05] MEDS ORDERED: *HR* PHENYLEPHRINE 1,000 MCG/10 ML SYRINGE IVP ONE (09:23)
[2019-06-05] MEDS ORDERED: *HR* HYDROMORPHONE 2 MG/ML VIAL ONE (10:33)
[2019-06-05] MEDS ORDERED: Neostigmine Methylsulfate 3 MG/3 ML SYRINGE ONE (10:33)
[2019-06-05] MEDS ORDERED: Morphine Sulfate Oral CONC 10 MG/0.5 ML ORAL.SYG SL PRN (12:56)
[2019-06-05] MEDS ORDERED: Ondansetron 4 MG/2 ML VIAL IVP PRN (12:56)
[2019-06-05] MEDS: *HR* Metoprolol 5 MG/5 ML VIAL IVP SCH ×2 (13:32→18:59)
[2019-06-05] MEDS: Acetaminophen IV 1,000 MG/100 ML INFUS..BTL IVPB SCH ×2 (14:06→19:53)
[2019-06-05] MEDS: 0.9 % Sodium Chloride 1,000 ML IVC SCH (14:07)
[2019-06-05] MEDS: cefOXitin 1,000 MG in 0.9 % Sodium Chloride Mini Bag 100 ML IVPB SCH (16:15)
[2019-06-05] MEDS: *HR* Heparin 5,000 UNIT/ML VIAL SQ SCH (19:00)
[2019-06-06] MEDS: cefOXitin 1,000 MG in 0.9 % Sodium Chloride Mini Bag 100 ML IVPB SCH ×2 (00:17→07:59)
[2019-06-06] MEDS: *HR* Metoprolol 5 MG/5 ML VIAL IVP SCH ×5 (00:18→20:44)
[2019-06-06] MEDS: Acetaminophen IV 1,000 MG/100 ML INFUS..BTL IVPB SCH ×5 (01:13→23:59)
[2019-06-06 02:52] LABS: Basophils % 0.1 %; Eosinophils % 0.1 %; Hematocrit 37.7 % (37.5-50.1); Immature Granulocytes % 0.6 % (0-4); Lymphocytes # 0.8 K/mcL (0.6-4.6); Lymphocytes % 4.7 %; Mean Corpuscular HGB Conc 34.5 g/dL (31.6-35.5); Mean Corpuscular Volume 89.8 fL (83.0-100.0); Mean Platelet Volume 9.1 fL (9.4-12.4); Monocytes # 1.3 K/mcL (0.0-1.3); Monocytes % 7.2 %; Neutrophils # 15.3 K/mcL (1.6-8.9); Platelet Count 319 K/mcL (140-400); Red Cell Distribution Width 14.1 % (11.5-14.5); Segmented Neutrophils % 87.3 %; White Blood Count 17.5 K/mcL (4.3-11.1)
[2019-06-06 03:09] LABS: BUN/Creatinine Ratio 15 (6-26); Blood Urea Nitrogen 18 mg/dL (8-23); Calcium 9.2 mg/dL (8.6-10.3); Carbon Dioxide 26 mEq/L (23-29); Chloride 97 mEq/L (98-107); Glucose 136 mg/dL (70-105); Osmolality,Calculated 274 (280-300); Potassium 4.5 mEq/L (3.5-5.1); Sodium 130 mEq/L (136-145); eGFR For African Americans > 60 (> 60); eGFR For Non-African Americans 56 (> 60)
[2019-06-06] MEDS: *HR* Heparin 5,000 UNIT/ML VIAL SQ SCH ×2 (06:41→17:51)
[2019-06-06] MEDS: 0.9 % Sodium Chloride 1,000 ML IVC SCH ×3 (08:01→20:44)
[2019-06-07] MEDS: *HR* Metoprolol 5 MG/5 ML VIAL IVP SCH ×4 (02:13→20:59)
[2019-06-07 04:52] LABS: Basophils # 0.1 K/mcL (0.0-0.2); Basophils % 0.4 %; Eosinophils # 0.1 K/mcL (0.0-0.6); Eosinophils % 0.6 %; Hematocrit 32.4 % (37.5-50.1); Immature Granulocytes % 0.4 % (0-4); Lymphocytes # 1.5 K/mcL (0.6-4.6); Lymphocytes % 11.9 %; Mean Corpuscular HGB Conc 34.6 g/dL (31.6-35.5); Mean Corpuscular Hemoglobin 31.5 pg (28.0-33.3); Mean Corpuscular Volume 91.3 fL (83.0-100.0); Mean Platelet Volume 9.5 fL (9.4-12.4); Monocytes # 0.9 K/mcL (0.0-1.3); Monocytes % 6.9 %; Neutrophils # 9.8 K/mcL (1.6-8.9); Platelet Count 245 K/mcL (140-400); Red Blood Count 3.55 M/mcL (4.19-5.50); Red Cell Distribution Width 14.1 % (11.5-14.5); Segmented Neutrophils % 79.8 %; White Blood Count 12.3 K/mcL (4.3-11.1)
[2019-06-07 04:53] LABS: Hemoglobin 11.2 g/dL (12.9-16.9)
[2019-06-07] MEDS: Acetaminophen IV 1,000 MG/100 ML INFUS..BTL IVPB SCH ×3 (05:31→16:57)
[2019-06-07] MEDS: *HR* Heparin 5,000 UNIT/ML VIAL SQ SCH ×2 (05:32→16:56)
[2019-06-07] MEDS: 0.9 % Sodium Chloride 1,000 ML IVC SCH (07:15)
[2019-06-08] MEDS: Acetaminophen IV 1,000 MG/100 ML INFUS..BTL IVPB SCH ×3 (04:23→11:56)
[2019-06-08] MEDS: *HR* Metoprolol 5 MG/5 ML VIAL IVP SCH ×3 (04:30→14:49)
[2019-06-08] MEDS: *HR* Heparin 5,000 UNIT/ML VIAL SQ SCH (06:14)
[2019-06-08 06:41] LABS: Basophils % 0.3 %; Eosinophils # 0.1 K/mcL (0.0-0.6); Eosinophils % 0.9 %; Hematocrit 34.5 % (37.5-50.1); Hemoglobin 11.8 g/dL (12.9-16.9); Immature Granulocytes % 0.4 % (0-4); Lymphocytes # 1.1 K/mcL (0.6-4.6); Lymphocytes % 10.7 %; Mean Corpuscular HGB Conc 34.2 g/dL (31.6-35.5); Mean Corpuscular Hemoglobin 31.4 pg (28.0-33.3); Mean Corpuscular Volume 91.8 fL (83.0-100.0); Mean Platelet Volume 9.2 fL (9.4-12.4); Monocytes # 0.6 K/mcL (0.0-1.3); Monocytes % 5.9 %; Neutrophils # 8.7 K/mcL (1.6-8.9); Platelet Count 231 K/mcL (140-400); Red Blood Count 3.76 M/mcL (4.19-5.50); Red Cell Distribution Width 13.9 % (11.5-14.5); Segmented Neutrophils % 81.8 %; White Blood Count 10.6 K/mcL (4.3-11.1)
[2019-06-08 06:59] LABS: Albumin 3.4 g/dL (3.5-5.7); Albumin/Globulin Ratio 1.2 (1.1-2.2); Bilirubin,Direct 0.2 mg/dL (0.0-0.2); Bilirubin,Indirect 0.4 mg/dL (0.0-1.0); Bilirubin,Total 0.6 mg/dL (0.3-1.0); Globulin 2.8 g/dL (2.4-3.5); Total Protein 6.2 g/dL (6.4-8.9)
[2019-06-08 07:00] LABS: BUN/Creatinine Ratio 12 (6-26); Blood Urea Nitrogen 12 mg/dL (8-23); Calcium 8.7 mg/dL (8.6-10.3); Carbon Dioxide 25 mEq/L (23-29); Chloride 98 mEq/L (98-107); Glucose 116 mg/dL (70-105); Osmolality,Calculated 277 (280-300); Potassium 3.5 mEq/L (3.5-5.1); Sodium 133 mEq/L (136-145); eGFR For African Americans > 60 (> 60); eGFR For Non-African Americans > 60 (> 60)
[2019-06-08] MEDS ORDERED: Aspirin Enteric Coated 81 MG Tablet PO SCH (09:00)
[2019-06-08 10:45] VITALS: BP 168/74
== END 2019-06-08 15:05 | DRG 414 ==
LOC: SAMDAY 07:13 → 3ANU 12:39
PROVIDERS: ADMIT Surgery; ATTEND Surgery